=== PATIENT | male | born 1985 | race Asian ===

== ENCOUNTER 2017-01-01 02:08 | Emergency (ER) | payer BC, OTHER ==
[~2017-01-01] VITALS: Ht 167.6 cm; Wt 74.8 kg
[~2017-01-01 02:08] MED LIST: NAPR-227 PO; TYLENOL; VICODIN
[2017-01-01 02:14] VITALS: BP 120/77; PULSE 64; RESP 16; TEMP 97.4; O2SAT 98
[2017-01-01 02:26] VITALS: BP 117/73; PULSE 68; RESP 17; TEMP 97.8; O2SAT 99
== END 2017-01-01 02:26 ==
LOC: SED 02:08
DX: Z02.83 Encounter for blood-alcohol and blood-drug test (principal); J45.909 Unspecified asthma, uncomplicated; K21.9 Gastro-esophageal reflux disease without esophagitis
CPT/HCPCS: 99283